=== PATIENT | male | born 1940 | race Caucasian/White ===

== ENCOUNTER 2017-07-31 08:56 | Day surgery (SDC) | payer MEDICARE, BC ==
[~2017-07-31] VITALS: Ht 167.6 cm; Wt 61.9 kg
[~2017-07-31 08:56] MED LIST: BUPIVACAINE/PF 0.5% ONE; HEPARIN 1,000 UNITS/ML, 10ML ONE
[2017-07-31] MEDS ORDERED: LIDOCAINE-MPF 1%, 2ML ONE (09:36)
[2017-07-31 09:54] VITALS: BP 136/76
[2017-07-31] MEDS ORDERED: SODIUM CHLORIDE 0.9% 1,000 ML IV SCH (10:12)
[2017-07-31] MEDS ORDERED: DUTA0.5C PO (10:17)
[2017-07-31] MEDS ORDERED: POLY17PO5 PO (10:17)
[2017-07-31] MEDS ORDERED: DOCU240C53 PO (10:17)
[2017-07-31] MEDS ORDERED: ERGO500017 PO (10:17)
[2017-07-31] MEDS ORDERED: CALC0.5C9 PO (10:17)
[2017-07-31] MEDS ORDERED: INUL1TAB4 PO (10:17)
[2017-07-31] MEDS ORDERED: ASPI1CPM9 PO (10:17)
[2017-07-31] MEDS ORDERED: ATOR10TA PO (10:17)
[2017-07-31] MEDS ORDERED: LIDOCAINE 1%, 2ML SQ PRN (10:30)
[2017-07-31] MEDS ORDERED: CEFAZOLIN 1,000 MG ONE (11:36)
[2017-07-31] MEDS ORDERED: SUCCINYLCHOLINE 20 MG/ML, 10ML ONE (11:36)
[2017-07-31] MEDS ORDERED: DEXAMETHASONE 4 MG/ML, 1ML ONE (11:36)
[2017-07-31] MEDS ORDERED: ONDANSETRON 2MG/ML, 2ML ONE (11:36)
[2017-07-31] MEDS ORDERED: PROPOFOL 10 MG/ML, 20ML ONE (11:36)
[2017-07-31] MEDS ORDERED: BUPIVACAINE/PF 0.5% INFIL ONE (11:54)
[2017-07-31] MEDS ORDERED: MIDAZOLAM 1 MG/ML, 2ML ONE (11:56)
[2017-07-31] MEDS ORDERED: FENTANYL PF 100 MCG/2ML ONE (11:56)
[2017-07-31] MEDS ORDERED: LABETALOL 5MG/ML, 20ML IV PRN (12:00)
[2017-07-31] MEDS ORDERED: PROMETHAZINE 12.5 MG SUPP PR PRN (12:00)
[2017-07-31] MEDS ORDERED: morphine SULFATE 10 MG/ML, 1ML IV PRN (12:00)
[2017-07-31] MEDS ORDERED: FENTANYL PF 100 MCG/2ML IV PRN (12:00)
[2017-07-31] MEDS ORDERED: MEPERIDINE/PF 25MG/0.5ML IVPush PRN (12:00)
[2017-07-31] MEDS ORDERED: OXYcodone 5 MG/5 ML ORAL.SOL UDC PO PRN (12:00)
[2017-07-31] MEDS ORDERED: ACETAMINOPHEN 325 MG TABLET PO PRN (12:00)
[2017-07-31] MEDS ORDERED: ONDANSETRON 2MG/ML, 2ML IVPush PRN (12:00)
[2017-07-31] MEDS ORDERED: hydrALAzine 20 MG/ML, 1ML IV PRN (12:00)
[2017-07-31] MEDS ORDERED: HEPARIN 1,000 UNITS/ML, 10ML IV ONE (12:00)
[2017-07-31] MEDS ORDERED: EPINEPHRINE TOPICAL SOLN 1 MG/ML, 30ML TP ONE (12:02)
== END 2017-07-31 12:00 ==
LOC: OUT 08:56
PROVIDERS: ATTEND Surgery Vascular Surgery
DX: T82.49XA Other complication of vascular dialysis catheter, initial encounter (principal); I12.0 Hypertensive chronic kidney disease with stage 5 chronic kidney disease or end stage renal disease; N18.6 End stage renal disease; Z88.8 Allergy status to other drugs, medicaments and biological substances; Y83.8 Other surgical procedures as the cause of abnormal reaction of the patient, or of later complication, without mention of misadventure at the time of the procedure; Y92.89 Other specified places as the place of occurrence of the external cause
CPT/HCPCS: 36415; 49325; 80047; 93005; J0330; J0690; J1100; J1644; J2250; J2405; J2704; J3010; J3490